=== PATIENT | male | born 1975 | race Caucasian/White ===

== ENCOUNTER 2018-03-08 04:32 | Inpatient (IN) | END 2018-03-30 15:55 | disposition home or self-care (01) | DRG 853 ==

== ENCOUNTER 2018-12-23 11:58 | Day surgery (SDC) | payer OTHER ==
[~2018-12-23] VITALS: Ht 182.9 cm; Wt 129.3 kg
[~2018-12-23 11:58] MED LIST: ADV25050 INH; ALBU8.5H8 INH; DOXY100T2 PO; LEVO500T48 PO; NICO-544 TD; PRED20TA PO; PROP20TA4 PO; QUET200T PO; RISP4TAB38 PO
[2018-12-23 13:14] VITALS: Ht 182.9 cm; Wt 129.3 kg
[2018-12-23 14:38] VITALS: BP 124/78; PULSE 56; RESP 18
[2018-12-23] MEDS ORDERED: PROPOFOL 20 ML ONE (15:00)
[2018-12-23] MEDS ORDERED: MIDAZOLAM 1 MG/ML 2 ML INJ ONE (15:00)
--- NOTE | 2018-12-23 15:00 | PREAC ---
Date/Time of Note Date/Time of Note DATE: 12/23/18 TIME: 14:57 Anesthesia Eval and Record Evaluation Time Pre-Procedure Interview DATE: 12/23/18 TIME: 14:57 Age 43 Sex male NPO: 8 hrs Preoperative diagnosis Cirrhosis, Liver Mass Planned procedure EGD Past Medical History Past Medical History: Includes Cardio: HTN, Dyslipidemia Pulm: Asthma Hepatic: Cirrhosis, Other (Liver Mass) GI: Obesity Psych: Depression, Anxiety Surgery & Anesthesia Issues No known issue Meds Anticoagulation: No Beta Taj within 24 hr: Yes Reported Medications Risperidone* (Risperdal*) 4 Mg Tablet, 4 MG PO BID, TAB 03/08/18 Propranolol Hcl* (Propranolol Hcl*) 20 Mg Tablet, 20 MG PO BID, TAB 03/08/18 Discontinued Reported Medications Quetiapine Fumarate* (Seroquel*) 200 Mg Tablet, 200 MG PO BID, TAB 03/08/18 Discontinued Scripts Nicotine* (Nicotine* Patch) 7 mg/day Patch, 1 PATCH TD DAILY for 14 Days, #14 PATCH Prov:JENNIFER STROUD NP 03/30/18 Prednisone (Prednisone) 20 Mg Tablet, 20 MG PO DAILY for 2 Days, TAB Prednisone 20 mg p.o. daily 2 days, then Prednisone 10 mg p.o. daily 2 days, then Prednisone 5 mg p.o. daily 2 days. Prov:JENNIFER STROUD NP 03/30/18 Levofloxacin* (Levaquin*) 500 Mg Tablet, 500 MG PO DAILY@06, #10 TAB Prov:JENNIFER STROUD NP 03/30/18 Doxycycline* (Vibramycin*) 100 Mg Tab, 100 MG PO BID, #20 TAB Prov:JENNIFER STROUD NP 03/30/18 Albuterol Sulfate* (Proair HFA*) 8.5 Gm Hfa.aer.ad, 2 PUFF INH Q4 for SHORTNESS OF BREATH, #1 INHALER Prov:JENNIFER STROUD NP 03/30/18 Salmeterol Xinaf/Fluticasone* (Advair*) 250-50 Diskus Inhaler, 1 INH INH BID, #1 INH Prov:JENNIFER STROUD NP 03/30/18 Meds reviewed: Yes Allergies Coded Allergies: No Known Allergies (Verified Allergy, Unknown, 12/23/18) Allergies Reviewed: Yes Labs/Studies Labs Reviewed: Reviewed by anesthesiologist test: N/A Studies: ECG (n/a), CXR (n/a) Pre-procedure Exam Last vitals Vital Signs Date Temp Pulse Resp B/P (MAP) Pulse Ox O2 O2 Flow FiO2 Time Delivery Rate 12/23/18 97.7 56 18 124/78 95 Room Air 14:38 (93) Airway: Adequate mouth opening, Adequate thyromental dist Mallampati: Mallampati II Teeth: Normal Lung: Normal Heart: Normal ASA Physical Status ASA physical status: 3 Emergency: None Planned Anesthetic General/MAC: MAC Planned Pain Management Parenteral pain med Pre-operative Attestations Prior to commencing anesthesia and surgery, the patient was re-evaluated, there was verification of: *The patient's identity *The results of appropriate recent lab work and preoperative vital signs *The above evaluation not changing prior to induction *Anesthetic plan, risk benefits, alternative and complications discussed with patient/family; questions answered; patient/family understands, accepts and wishes to proceed. IRMA HOOVER MD Dec 23, 2018 14:59
--- NOTE | 2018-12-23 15:02 | HPN ---
Date/Time of Note Date/Time of Note DATE: 12/23/18 TIME: 15:02 Interval H&P Admission Note Pt. seen H&P reviewed: No system changes LEXI MILLER Dec 23, 2018 15:02
--- NOTE | 2018-12-23 15:10 | PAC ---
Date/Time of Note Date/Time of Note DATE: 12/23/18 TIME: 15:10 Post-Anesthesia Notes Post-Anesthesia Note Last documented vital signs Vital Signs Date Temp Pulse Resp B/P (MAP) Pulse Ox O2 O2 Flow FiO2 Time Delivery Rate 12/23/18 97.7 56 18 124/78 95 Room Air 15:28 (93) Activity: WNL Respiratory function: WNL Cardiovascular function: WNL Mental status: Baseline Pain reasonably controlled: Yes Hydration appropriate: Yes Nausea/Vomiting absent: Yes IRMA HOOVER MD Dec 23, 2018 15:10
[2018-12-23 15:55] VITALS: BP 119/74; PULSE 60; RESP 14
== END 2018-12-23 16:10 | disposition home or self-care (01) ==
LOC: GIL 11:58
PROVIDERS: ATTEND Internal Medicine Gastroenterology
DX: I85.00 Esophageal varices without bleeding (principal); E78.5 Hyperlipidemia, unspecified; I10 Essential (primary) hypertension; J45.909 Unspecified asthma, uncomplicated
CPT/HCPCS: 43235; J2250; Z7610

== ENCOUNTER 2019-03-04 08:07 | Day surgery (SDC) | payer OTHER ==
[~2019-03-04] VITALS: Ht 175.3 cm; Wt 132.0 kg
[~2019-03-04 08:07] MED LIST changes: -ADV25050 INH; -ALBU8.5H8 INH; -DOXY100T2 PO; -LEVO500T48 PO; -NICO-544 TD; -PRED20TA PO; -QUET200T PO
[2019-03-04] MEDS ORDERED: CHOL200056 ORAL (08:59)
[2019-03-04 09:13] VITALS: Ht 175.3 cm; Wt 132.0 kg
[2019-03-04 09:15] VITALS: BP 110/68; PULSE 58; RESP 16
[2019-03-04] MEDS ORDERED: LIDOCAINE 1% (MDV) 20 ML INJ ONE (10:13)
[2019-03-04 11:10] VITALS: BP 122/54; PULSE 54; RESP 18
[2019-03-04 11:30] VITALS: BP 120/82; PULSE 59; RESP 17
[2019-03-04 11:45] VITALS: BP 119/74; PULSE 63; RESP 16
--- NOTE | 2019-03-04 11:48 | HPN ---
Date/Time of Note Date/Time of Note DATE: 03/04/19 TIME: 11:48 Interval H&P Admission Note Pt. seen H&P reviewed: No system changes GEREMIAS SKELTON MD Mar 04, 2019 11:48
[2019-03-04 12:15] VITALS: BP 127/80; PULSE 60; RESP 16
== END 2019-03-04 13:48 | disposition home or self-care (01) ==
LOC: SDS 08:07
PROVIDERS: ATTEND Surgery Surgical Oncology
DX: K75.81 Nonalcoholic steatohepatitis (NASH) (principal)
CPT/HCPCS: 47000; 76942; 88307; 88313; Z7610